=== PATIENT | male | born 1985 | race African-American/Black ===

== ENCOUNTER 2020-08-31 11:44 | Emergency (ER) | payer SELFPAY ==
[~2020-08-31] VITALS: Ht 177.8 cm; Wt 81.6 kg
[2020-08-31 11:52] VITALS: BP 96/63
--- NOTE | 2020-08-31 12:58 | Diagnostic Imaging Report ---
Indication: Headache/pain after fall Technique: Continuous helical CT scanning of the head was performed without intravenous contrast material. Axial and coronal 5 mm sections were generated. Radiation dose was minimized using automated exposure control Dose: Total Dose Length Product - DLP 1045.[address] Dose Index - CTDIvol(s) 53.4 mGy. Comparison: None FINDINGS: There is no acute intracranial hemorrhage, mass effect or cortical edema. The ventricles, cisterns and sulci are normal for age. Visualized mastoid air cells are unremarkable. Mild mucosal thickening noted in the paranasal sinuses. No acute skull fracture. IMPRESSION: No evidence of acute intracranial hemorrhage, mass effect or cortical edema. The CT scanner at [facility] is accredited by the [employer] and the scans are performed using protocols designed to limit radiation exposure to as low as reasonably achievable to attain images of sufficient resolution adequate for diagnostic evaluation.
--- NOTE | 2020-08-31 13:00 | Diagnostic Imaging Report ---
Indication: Back pain status post fall Technique: 3 views of the lumbar spine Comparison: None Findings: There are 5 nonrib-bearing lumbar-type vertebral bodies, assuming 12. Bony mineralization within normal limits. No acute lumbar spine fractures identified. Vertebral body heights and disc spaces are maintained. No evidence of spondylolisthesis. No radiopaque foreign body. Impression: No evidence of acute fracture or traumatic malalignment.
[2020-08-31] MEDS ORDERED: IBUPROFEN600 M1 ORAL (13:14)
[2020-08-31] MEDS ORDERED: ROBAXIN-750750 MG PO (13:14)
[2020-08-31] MEDS ORDERED: BACITRACIN15 GM TOPIC (13:45)
[2020-08-31] MEDS ORDERED: LIDODERM700 M1 TOPIC (13:45)
[2020-08-31 13:56] VITALS: BP 105/55
--- NOTE | 2020-08-31 14:38 | Emergency Room Report ---
History of Present Illness General Chief Complaint: Multiple Trauma/Fall Source: Patient Present Illness HPI 35-year-old male presents with headache back pain status post fall. On 08/26 he fell down the stairs.. States has been having headaches, back pain since then. Questionable LOC. Pain is throbbing, 9 out of 10, nonradiating. No other aggravating relieving factors. Denies any other associated symptoms Allergies: Coded Allergies: No Known Allergies (Unverified , 08/31/20) COVID-19 Screening Contact w/high risk pt: No Experienced COVID-19 symptoms?: No COVID-19 Testing performed [employer]: No Patient History Past Medical History: asthma Past Surgical History: none Pertinent Family History: none Social History: Denies: smoking, alcohol use, drug use Immunizations: UTD Reviewed Nursing Documentation: PMH: Agreed; PSxH: Agreed Nursing Documentation-PMH Past Medical History: No History, Except For Hx Asthma: Yes Review of Systems All Other Systems: negative except mentioned in HPI Physical Exam Vital Signs Date Time Temp Pulse Resp B/P (MAP) Pulse Ox O2 Delivery O2 Flow Rate FiO2 08/31/20 11:46 97.7 83 19 96/63 (74) 100 Room Air Sp02 EP Interpretation: reviewed, normal General Appearance: no apparent distress, alert, GCS 15, non-toxic Head: normocephalic, atraumatic Eyes: bilateral eye normal inspection, bilateral eye PERRL ENT: hearing grossly normal, normal pharynx, no angioedema, normal voice Neck: full range of motion, supple/symm/no masses Respiratory: chest non-tender, lungs clear, normal breath sounds, speaking full sentences Cardiovascular #1: regular rate, rhythm, no edema Cardiovascular #2: 2+ carotid (R), 2+ carotid (L), 2+ radial (R), 2+ radial (L), 2+ dorsalis pedis (R), 2+ dorsalis pedis (L) Gastrointestinal: normal bowel sounds, non tender, soft, non-distended, no guarding, no rebound Rectal: deferred Genitourinary: normal inspection, no CVA tenderness, vertebral tenderness Musculoskeletal: back normal, normal range of motion, gait/station normal, non- tender Neurologic: alert, motor strength/tone normal, oriented x3, sensory intact, responsive, speech normal Psychiatric: judgement/insight normal, memory normal, mood/affect normal, no suicidal/homicidal ideation Reflexes: 3+ bicep (R), 3+ bicep (L), 3+ tricep (R), 3+ tricep (L), 3+ knee (R), 3+ knee (L) Skin: no rash Lymphatic: no adenopathy Medical Decision Making Diagnostic Impression: Primary Impression: Back pain Qualified Codes: M54.5 - Low back pain Additional Impressions: Multiple injuries due to trauma Head injury Qualified Codes: S09.90XA - Unspecified injury of head, initial encounter ER Course Hospital Course 35-year-old male presents with headache and back pain status post fall downstairs Differential diagnoses include: skull fx, intracranial injury, concussion Clinical course Patient placed on stretcher. After initial history and physical I ordered CT head, xray L spine and pain medications CT head shows no acute process. L-spine x-ray no acute fracture I discussed findings with patient. Safe for discharge with close outpatient follow-up Diagnosis -back pain, multiple injuries due to trauma, head injury Stable and discharged to home. Followup with PMD. Return to ED if symptoms recur or worsen Other X-Ray Diagnostic Results Other X-Ray Diagnostic Results : X-Ray ordered: L spine # of Views/Limited Vs Complete: 2 View Indication: Pain EP Interpretation: Yes Interpretation: no dislocation, no soft tissue swelling, no fractures Impression: No acute disease Electronically Signed by: Electronically signed by Dipak Conner MD CT/MRI/US Diagnostic Results CT/MRI/US Diagnostic Results : Imaging Test Ordered: CT Head Impression Procedure: CT Head no Contrast Indication: Headache/pain after fall Technique: Continuous helical CT scanning of the head was performed without intravenous contrast material. Axial and coronal 5 mm sections were generated. Radiation dose was minimized using automated exposure control Dose: Total Dose Length Product - DLP 1045.[address] Dose Index - CTDIvol(s) 53.4 mGy. Comparison: None FINDINGS: There is no acute intracranial hemorrhage, mass effect or cortical edema. The ventricles, cisterns and sulci are normal for age. Visualized mastoid air cells are unremarkable. Mild mucosal thickening noted in the paranasal sinuses. No acute skull fracture. IMPRESSION: No evidence of acute intracranial hemorrhage, mass effect or cortical edema. The CT scanner at [facility] is accredited by the [employer] and the scans are performed using protocols designed to limit r adiation exposure to as low as reasonably achievable to attain images of sufficient resolution adequate for diagnostic evaluation. Last Vital Signs Date Time Temp Pulse Resp B/P (MAP) Pulse Ox O2 Delivery O2 Flow Rate FiO2 08/31/20 13:56 98.0 71 18 105/55 99 Room Air Status: improved Disposition: HOME, SELF-CARE Condition: Stable Scripts Lidocaine Patch* (Lidoderm Patch*) 1 Each Adh..patch 1 PATCH TOPIC DAILY, #30 PATCH 0 Refills Patch(es) may remain in place for up to 12 hours in any 24-hour period. Prov: Ronda Hinton 08/31/20 Bacitracin (Bacitracin) 28.4 Gm Oint...g. 1 APPLIC TOPIC THREE TIMES A DAY, #28.4 GM Prov: Ronda Hinton 08/31/20 Ibuprofen* (MOTRIN*) 600 Mg Tablet 600 MG ORAL THREE TIMES A DAY, #20 TAB Prov: Ronda Hinton 08/31/20 Methocarbamol* (ROBAXIN-750*) 750 Mg Tablet 750 MG PO QID, #28 TAB 0 Refills Prov: Ronda Hinton 08/31/20 Departure Forms: Return to Work Return to Work Date: Sep 03, 2020 Return to Full Activity: Sep 03, 2020 Patient Instructions: Contusion, [id number], Back Pain, Adult, [id number] Additional Instructions: Take medications as directed. Do not drink alcohol, drive, or operate heavy machinery while taking Robaxin ( Muscle Relaxers) as this may cause drowsiness. Follow up with a Primary Care Provider in 3-5 days, even if your symptoms have resolved. --Please review list of primary care clinics, if you do not already have a primary care provider Return sooner to ED if new symptoms occur, or current symptoms become worse. - Please note that this Emergency Department Report was dictated using [employer] press operator technology software, occasionally this can lead to erroneous entry secondary to interpretation by the dictation equipment. Dipak Conner MD Aug 31, 2020 14:38
== END 2020-08-31 13:57 | disposition home or self-care (01) ==
LOC: EMR 12:01
DX: S09.90XA Unspecified injury of head, initial encounter (principal); T14.90XA Injury, unspecified, initial encounter; M54.5 Low back pain; J45.909 Unspecified asthma, uncomplicated; W10.9XXA Fall (on) (from) unspecified stairs and steps, initial encounter; Y93.9 Activity, unspecified; Y92.9 Unspecified place or not applicable
CPT/HCPCS: 70450; 72020; 99284